=== PATIENT | female | born 1980 | race Hispanic/Latino ===

== ENCOUNTER 2017-08-06 13:41 | Outpatient (CLI) | payer MEDICAID | END 2017-08-06 13:42 | disposition home or self-care (01) | LOC: BICMAMMO 13:41 | PROVIDERS: ATTEND Nurse Practitioner Family | DX: Z12.31 Encounter for screening mammogram for malignant neoplasm of breast (principal) | CPT/HCPCS: 77067 ==

== ENCOUNTER 2021-08-01 14:39 | Outpatient (CLI) | payer OTHER | END 2021-08-01 14:40 | disposition home or self-care (01) | LOC: BICULT 14:39 | PROVIDERS: ATTEND Nurse Practitioner Family | DX: R59.0 Localized enlarged lymph nodes (principal) | CPT/HCPCS: 76536 ==

== ENCOUNTER 2021-08-09 07:57 | Outpatient (CLI) | payer OTHER | END 2021-08-09 07:58 | disposition home or self-care (01) | LOC: BICCT 07:57 | PROVIDERS: ATTEND Internal Medicine Hematology & Oncology | DX: R22.1 Localized swelling, mass and lump, neck (principal); R59.0 Localized enlarged lymph nodes | CPT/HCPCS: 70491 ==